=== PATIENT | female | born 1945 | race Caucasian/White ===

== ENCOUNTER → 2016-11-29 | Outpatient (CLI) | payer MEDICARE, OTHER ==
--- NOTE | 2016-11-29 15:41 | XR ---
EXAMINATION TYPE: XR KUB DATE OF EXAM: 11/29/2016 3:36 PM HISTORY: Hematuria Comparison: None. Single KUB is submitted for interpretation. Findings: Right renal calculi: None Visualized. Right ureteral calculi: None Visualized. Left renal calculi: None Visualized. Left ureteral calculi: None Visualized. Pelvic calcifications: None Visualized. Bowel gas pattern is unremarkable. No free air. No mass effects. Curvilinear spur at the left L4-5 level. IMPRESSION: 1. No evidence for radiopaque calculus at this time.
== END | disposition home or self-care (01) ==
LOC: RADXRMAIN 15:23
PROVIDERS: ATTEND Urology
DX: N20.0 Calculus of kidney (principal)
CPT/HCPCS: 74000

== ENCOUNTER → 2016-12-20 | Outpatient (CLI) | payer MEDICARE, OTHER ==
[2016-12-20 13:21] LABS: Blood Urea Nitrogen 20 mg/dL (7-17); Non-African American GFR(MDRD) >60 (>60 ml/min/1.73 sqM)
--- NOTE | 2016-12-20 14:32 | CT ---
EXAMINATION TYPE: CT urogram wo/w con DATE OF EXAM: 12/20/2016 COMPARISON: NONE HISTORY: Hematuria and increased frequency of urination CT DLP: 1750 mGycm Automated exposure control for dose reduction was used. CONTRAST: Performed with IV Contrast, patient injected with 100 mL of Omnipaque 300. TECHNIQUE: Helical acquisition through the abdomen and pelvis were obtained following intravenous adm inistration of 100 cc of Omnipaque 300. Multiple delayed sequences were acquired. Three-dimensional a lignment are displayed of the renal collecting system and bladder were obtained at the CT scanner. FINDINGS: There is some scarring or atelectasis in the right middle lobe. Visualized portions of the lungs are otherwise clear. Noncontrast scan demonstrates no renal calculi or gallstones. Following intravenous administration of contrast, the liver, spleen and gallbladder are normal. Both adrenal glands are normal. The pancreas is unremarkable. Both kidneys demonstrate function. There are parapelvic cysts present bilaterally. There is a 6 mm le monroe in the mid polar region of the right kidney, too small to accurately characterize. There is a sm aller, 3.9 mm lesion in the upper pole of the left kidney, again too small to characterize accurately . The renal collecting systems are visualized throughout their entire course. The bladder is unremarkab le. Uterus is unremarkable. The ovaries are not visualized with certainty. There is no significant diverticular change and there is no radiographic evidence of diverticulitis. The appendix is normal. Small bowel loops are normal. There is no free fluid and no free air identified. There is degenerative disc disease at L5-S1 with a vacuum phenomena. 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 IMPRESSION: 1. TINY, BILATERAL RENAL LESIONS, TOO SMALL TO CHARACTERIZE. RENAL ULTRASOUND WOULD BE SUGGESTED. 2. RENAL COLLECTING SYSTEM AND BLADDER ARE UNREMARKABLE. 3. MILD DEGENERATIVE CHANGE WITHIN THE SPINE.
== END | disposition home or self-care (01) ==
LOC: RADCTMAIN 12:51
PROVIDERS: ATTEND Urology
DX: N28.9 Disorder of kidney and ureter, unspecified (principal)
CPT/HCPCS: 82565; 84520; 74178; 36415; 74400; Q9967